=== PATIENT | female | born 1985 | race African-American/Black ===

== ENCOUNTER 2024-04-06 18:21 | Emergency (ER) | payer MEDICAID, OTHER ==
[~2024-04-06] VITALS: Ht 160 cm; Wt 100.0 kg
[2024-04-06 18:22] VITALS: PULSE 101; O2SAT 98
[2024-04-06 18:38] VITALS: BP 124/82; RESP 16; TEMP 98; O2SAT 100
[2024-04-06] MEDS: ACETAMINOPHEN 325MG TABLET PO STA (19:23)
[2024-04-06 19:36] LABS: BASOPHILS % 0.6 % (0.0-2.0); DIFFERENTIAL COMMENT 0; EOSINOPHILS % 1.9 % (0.0-5.0); HEMATOCRIT. 28.6 % (36.0-48.0); HEMOGLOBIN. 9.4 g/dL (12.0-16.0); LYMPHOCYTES % 33.3 % (20.0-50.0); MEAN CORPUSCULAR HEMOGLOBIN 23.9 pg (28.0-32.0); MEAN CORPUSCULAR HGB CONC 32.9 g/dL (31.0-37.0); MEAN CORPUSCULAR VOLUME 72.8 fL (81.0-99.0); MONOCYTES % 9.3 % (2.0-8.0); NEUTROPHILS % 54.9 % (40.0-76.0); PLATELET 331 x1000/uL (130-400); RED BLOOD CELL COUNT 3.93 mill/uL (4.2-5.4); RED CELL DISTRIBUTION WIDTH 16.9 % (11.6-14.6); WHITE BLOOD COUNT 7.8 x1000/uL (4.5-11.0)
[2024-04-06 20:12] LABS: HCG SCREEN NEGATIVE; POTASSIUM 3.6 mEq/L (3.5-5.1)
[2024-04-06 20:13] LABS: CALCIUM 9.2 mg/dL (8.7-10.4)
[2024-04-06 20:18] LABS: CREATININE 1.3 mg/dL (0.6-1.0)
[2024-04-06 21:37] LABS: ALANINE AMINOTRANSFERASE 17 IU/L (10-49); ALBUMIN 4.1 g/dL (3.2-4.8); ASPARTATE AMINOTRANSFERASE 17 IU/L (<34); BILIRUBIN TOTAL 0.2 mg/dL (0.1-1.0); PROTEIN TOTAL 7.1 g/dL (6.0-8.3)
[2024-04-06 21:42] LABS: BILIRUBIN DIRECT < 0.1 mg/dL (<=3.0)
== END 2024-04-06 23:24 | disposition left against medical advice (07) ==
LOC: ER 18:21
DX: D25.0 Submucous leiomyoma of uterus (principal); N93.8 Other specified abnormal uterine and vaginal bleeding; E78.00 Pure hypercholesterolemia, unspecified
CPT/HCPCS: 36415; 76830; 76856; 80048; 80076; 84703; 85025; 99284